=== PATIENT | male | born 1940 | race Two or more races ===

== ENCOUNTER 2017-07-27 20:36 | Inpatient (IN) | payer MEDICARE, OTHER ==
[~2017-07-27] VITALS: Ht 170.2 cm; Wt 82.1 kg
--- NOTE | 2017-07-27 20:49 | NUR ---
PT BRIB LAFD FROM HOME WITH FOR C/O PRESSURE TO BILATERAL EARS AND NECK, A/O X 4, BREATHING EVEN/UNLABORED, NO DIZZINESS, NO C/O PAIN, 18 G IV TO R AC,
[2017-07-27] MEDS ORDERED: IV NS 0.9% 500 ML BAG IV ONE (21:00)
[2017-07-27] MEDS ORDERED: DILTIAZEM HCL 50 MG IV ONE (21:07)
[2017-07-27 21:10] LABS: BASOPHILS # (AUTO) 0.1 /CMM (0.0-0.2); EOSINOPHILS # (AUTO) 0.1 /CMM (0.0-0.7); EOSINOPHILS % (AUTO) 1.4 % (0.0-6.0); HEMATOCRIT 40 % (39-51); HEMOGLOBIN 13.2 g/dL (13.5-17.5); LYMPHOCYTES % (AUTO) 23.8 % (20.0-44.0); MEAN CORPUSCULAR HEMOGLOBIN 26 PG (26.0-33.0); MEAN CORPUSCULAR HGB CONC 33 g/dl (31.0-36.0); MEAN CORPUSCULAR VOLUME 78 fL (80-96); MONOCYTES # (AUTO) 0.7 /CMM (0.1-1.30); MONOCYTES % (AUTO) 8.3 % (2.0-12.0); NEUTROPHILS # (AUTO) 5.5 /CMM (1.8-8.9); NEUTROPHILS % (AUTO) 65.5 % (43.0-81.0); PLATELET COUNT (AUTO) 161 /CMM (150-450); RDW COEFFICIENT OF VARIATION 15.3 (11.5-15.0); RED BLOOD CELL COUNT(AUTO) 5.11 MIL/uL (4.5-6.0); WHITE BLOOD COUNT (AUTO) 8.4 K/uL (4.3-11.0)
[2017-07-27 21:23] LABS: INR 0.94 (0.87-1.13); PROTHROMBIN TIME 9.8 SECS (9.5-12.7)
[2017-07-27 21:27] LABS: ALANINE AMINOTRANSFERASE 35 U/L (12-78); ALBUMIN 3.4 g/dL (3.4-5.0); ALKALINE PHOSPHATASE 109 U/L (46-116); ASPARTATE AMINOTRANSFERASE 19 U/L (15-37); BILIRUBIN,DIRECT 0.1 mg/dL (0.0-0.2); BILIRUBIN,TOTAL 0.2 mg/dL (0.2-1.0); CALCIUM, SERUM 8.6 mg/dL (8.5-10.1); CARBON DIOXIDE 25 mmol/L (21-32); CHLORIDE 109 mmol/L (98-107); CREATININE 1.4 mg/dL (0.6-1.3); GLUCOSE 222 mg/dL (74-106); POTASSIUM 4.8 mmol/L (3.5-5.1); SODIUM SERUM 143 mmol/L (136-145); TOTAL PROTEIN, SERUM 7.5 g/dL (6.4-8.2); UREA NITROGEN, BLOOD 26 mg/dL (7-18)
[2017-07-27 21:29] LABS: TROPONIN I < 0.017 ng/mL (0.00-0.056)
[2017-07-27] MEDS ORDERED: DILTIAZEM HCL 50 MG IV IV ONE (21:30)
--- NOTE | 2017-07-27 21:34 | NUR ---
CALLED [employer], SUGARCANE PLANTER WAS PAGED.
--- NOTE | 2017-07-27 21:42 | NUR ---
REPROT TO JADEN ZEE, ALL QUESTIONS ANSWERED
[2017-07-27] MEDS ORDERED: DILTIAZEM HCL 30 MG TABLET ONE (21:47)
[2017-07-27] MEDS ORDERED: DILTIAZEM HCL 30 MG TABLET PO SCH (22:00)
[2017-07-27 22:16] VITALS: BP 117/74
--- NOTE | 2017-07-27 22:37 | NUR ---
RN OPEN NOTES RECEIVED PATIENT FROM ER VIA [facility] WITH FAMILY AT BESIDE. A/O X3. NO SIGNS OF DISTRESS OR DISCOMFORT. BREATHING EVEN AND UNLABORED. IV ACCESS IN RAC PATENT AND INTACT, NO SIGNS OF REDNESS OR INFILTRATION. ATTACHED TO TELE MONITORING WITH AFIB 120 NOTED. ORIENTED PATIENT TO UNIT AND ROOM. BED IN LOW LOCKED POSITION WITH SIDE RAILS X2. CALL LIGHT WITHIN REACH. WILL CONTINUE TO MONITOR.
[2017-07-27 22:59] VITALS: BP 117/74
[2017-07-27] MEDS ORDERED: Z GUARD REMEDY 2 OZ OINT TP PRN (23:30)
[2017-07-27] MEDS ORDERED: ONDANSETRON HCL/PF 4 MG/2 ML VIAL IVP PRN (23:30)
[2017-07-27] MEDS ORDERED: ZOLPIDEM TARTRATE 5 MG TABLET PO PRN (23:30)
[2017-07-27] MEDS ORDERED: HYDROCODONE/APAP 5/325MG 1 EACH TABLET PO PRN (23:30)
[2017-07-27] MEDS ORDERED: ACETAMINOPHEN 325 MG TABLET PO PRN (23:30)
[2017-07-27] MEDS ORDERED: MAGNESIUM HYDROXIDE 30 ML UDC PO PRN (23:30)
[2017-07-28] MEDS ORDERED: LORAZEPAM INJ 2 MG/ML VIAL IV PRN (00:30)
[2017-07-28] MEDS ORDERED: DEXTROSE 50%-WATER 50 ML DISP.SYRIN IV PRN (00:30)
[2017-07-28] MEDS ORDERED: LORAZEPAM INJ 2 MG/ML VIAL ONE (00:37)
[2017-07-28] MEDS ORDERED: ZOLPIDEM TARTRATE 5 MG TABLET ONE (00:38)
--- NOTE | 2017-07-28 00:46 | NUR ---
RN NOTES PATIENT TAKEN DOWN FOR CT SCAN VIA GURNEY.
--- NOTE | 2017-07-28 00:59 | NUR ---
RN NOTES PATIENT BACK ON FLOOR FROM CT SCAN. WILL CONTINUE TO MONITOR.
[2017-07-28] MEDS ORDERED: IBUPROFEN 200 MG TABLET PO PRN (01:30)
[2017-07-28 04:00] VITALS: BP 107/65
[2017-07-28] MEDS: BLOOD SUGAR DIAGNOSTIC 1 EACH STRIP VI SCH ×4 (06:37→21:25)
[2017-07-28] MEDS: INSULIN REGULAR, HUMAN 100 UNIT/ML 3 ML VIAL SQ PRN ×3 (06:40→11:55)
--- NOTE | 2017-07-28 06:50 | NUR ---
RN NOTES RECEIVED PATIENT FROM 3W, PATIENT TOLERATED TRANSFER WELL. UNCONTROLLED AFIB ON FIELD RETURN REPAIRER. WILL START AMIODARONE BOLUS, THEN AMIODARONE DRIP PRESCRIBED BY MD. CALLED PHARMACY AT THIS TIME, NO CALL BACK. CHARGE NURSE RAQUEL MADE AWARE TO MIX AMIODARONE DRIP. WILL ADMINISTER WHEN MEDICATION AVAILABLE
[2017-07-28] MEDS ORDERED: AMIODARONE 150 MG/3 ML VIAL IV ONE (06:59)
[2017-07-28] MEDS ORDERED: AMIODARONE 900 MG in IV D5W 500 ML IV PRN (07:00)
[2017-07-28] MEDS ORDERED: AMIODARONE 150 MG in IV D5W 100 ML IV ONE (07:00)
--- NOTE | 2017-07-28 07:04 | NUR ---
RN CLOSING NOTES TRANSFERRED PATIENT TO XI VIA ACLS PROTOCOL IN STABLE CONDITION. PATIENT AT BESIDE. NO SIGNS OF DISTRESS OR DISCOMFORT. BREATHING EVEN AND UNLABORED. IV ACCESS IN RAC, PATENT AND INTACT, NO SIGNS OF REDNESS OR INFILTRATION. NO SIGNIFICANT CHANGES THROUGH THE NIGHT. ALL NEEDS MET. ENDORSED TO ANTON FOR JONATHAN.
[2017-07-28 07:16] LABS: EOSINOPHILS # (AUTO) 0.1 /CMM (0.0-0.7); EOSINOPHILS % (AUTO) 1.1 % (0.0-6.0); HEMATOCRIT 35 % (39-51); HEMOGLOBIN 11.9 g/dL (13.5-17.5); LYMPHOCYTES # (AUTO) 1.9 /CMM (0.8-4.8); LYMPHOCYTES % (AUTO) 21.1 % (20.0-44.0); MEAN CORPUSCULAR HEMOGLOBIN 26 PG (26.0-33.0); MEAN CORPUSCULAR HGB CONC 34 g/dl (31.0-36.0); MEAN CORPUSCULAR VOLUME 78 fL (80-96); MONOCYTES # (AUTO) 0.6 /CMM (0.1-1.30); MONOCYTES % (AUTO) 6.7 % (2.0-12.0); NEUTROPHILS # (AUTO) 6.4 /CMM (1.8-8.9); NEUTROPHILS % (AUTO) 71.1 % (43.0-81.0); PLATELET COUNT (AUTO) 145 /CMM (150-450); RDW COEFFICIENT OF VARIATION 16.7 (11.5-15.0); RED BLOOD CELL COUNT(AUTO) 4.51 MIL/uL (4.5-6.0)
[2017-07-28 07:40] LABS: CARBON DIOXIDE 20 mmol/L (21-32); CHLORIDE 110 mmol/L (98-107); CREATININE 1.4 mg/dL (0.6-1.3); GLUCOSE 240 mg/dL (74-106); MAGNESIUM 1.7 mg/dL (1.8-2.4); PHOSPHORUS 2.9 mg/dL (2.5-4.9); POTASSIUM 4.1 mmol/L (3.5-5.1); SODIUM SERUM 141 mmol/L (136-145); UREA NITROGEN, BLOOD 25 mg/dL (7-18)
--- NOTE | 2017-07-28 07:40 | NUR ---
XI RN NOTE CALLED TO DR FERNANDEZ NOTIFIED THAT HR ON TELE MONITOR SR HR 60 ,DID NOT START AMIODARONE DRIP , STATED OK TO STOP DRIP AND START AMIODARONE 200 MG PO TID HOLD HR LESS THEN 50, ORDER CARRIED OUT
[2017-07-28 08:00] VITALS: BP 108/53
--- NOTE | 2017-07-28 08:00 | NUR ---
XI RNNOTE RECEIVED PATIENT IN BED , ALERT , ORIENTED NO SOB NOTED, AT BEDSIDE,PER DR FERNANDEZ ORDER WILL STOP AMIODARONE DRIP WILL START AMIODARONE 200 MG TID PO , RECHECKED BLOOD SUGAR 320 MG\DL , 6 UNITS OF REGULAR INSULIN GIVEN ON TELE MONITOR SR HR 60 , RT AC HL INTACT NI S\S INFECTION NOTED, BED IN LOWEST AND LOCKED POSITION , CALL LIGHT WITHIN REACH ,PLAN OF CARE DISCUSSED WITH PATIENT ,WILL CONT TO MONITOR CLOSELY
[2017-07-28 08:16] LABS: THYROID STIMULATING HORMONE 1.357 uIU/mL (0.358-3.74); TRIGLYCERIDES 129 mg/dL (30-150)
[2017-07-28 08:17] LABS: CHOLESTEROL 58 mg/dL (<200); HDL CHOLESTEROL 30 mg/dL (40-60); LDL 17 mg/dL (0-99)
[2017-07-28] MEDS: CLOPIDOGREL BISULFATE 75 MG TABLET PO SCH (08:21)
[2017-07-28] MEDS: ATORVASTATIN 40 MG TABLET PO SCH (08:21)
[2017-07-28] MEDS: AMIODARONE HCL 200 MG TABLET PO SCH ×3 (08:23→16:24)
[2017-07-28] MEDS ORDERED: ZOLP10TA2 PO (08:42)
[2017-07-28] MEDS ORDERED: ALFU10TA10 PO (08:42)
[2017-07-28] MEDS ORDERED: LATA2.5D7 EACHEYE (08:42)
[2017-07-28] MEDS ORDERED: LORA0.5T PO (08:42)
[2017-07-28] MEDS ORDERED: GLIM4TAB2 PO (08:42)
[2017-07-28] MEDS ORDERED: DEXL60CA3 PO (08:42)
[2017-07-28] MEDS ORDERED: CARV25TA2 PO (08:42)
[2017-07-28] MEDS ORDERED: ROSU10TA PO (08:42)
[2017-07-28] MEDS ORDERED: COLC0.6T69 PO (08:42)
[2017-07-28] MEDS ORDERED: CLOP75TA2 PO (08:42)
[2017-07-28] MEDS ORDERED: TADA5TAB2 PO (08:42)
[2017-07-28] MEDS ORDERED: INSU3INS6 SQ (08:42)
[2017-07-28] MEDS ORDERED: DULA0.75 SQ (08:42)
[2017-07-28] MEDS ORDERED: LISI-603 PO (08:42)
[2017-07-28] MEDS ORDERED: HUM10VIA5 SQ (08:43)
[2017-07-28] MEDS: LOSARTAN POTASSIUM 50 MG TABLET PO SCH (09:37)
--- NOTE | 2017-07-28 09:49 | NUR ---
SALES DEVELOPMENT COORDINATOR NOTE ON TELE MONITOR SR 68, NOT IN ACUTE DISTRESS. WILL CONT TO MONITOR CLOSELY
[2017-07-28 10:08] VITALS: BP 122/55
--- NOTE | 2017-07-28 11:00 | NUR ---
ASSEMBLER [employer] PIPES NOTE REPORT GIVEN TO PATITO ZEE
--- NOTE | 2017-07-28 11:00 | NUR ---
RN NOTES RECEIVED PT FROM [facility]. PT A&0X3, YARELI SPEAKING ON ROOM AIR NO SOB OR DISTRESS NOTED, AT BEDSIDE. SR ON THE TELE MONITOR. RAC 18G IV SITE DRY AND INTACT. BED LOCKED AND IN LOWEST POSITION, CALL LIGHT WITHIN REACH, SIDE RAILS UPX3 WILL CONT TO MONITOR.
[2017-07-28] MEDS: Magnesium 1GM/D5W 100ML PREMIX 100 ML IV SCH ×2 (11:36→12:46)
[2017-07-28 12:00] VITALS: BP 120/55
[2017-07-28] MEDS: *INSULIN REGULAR(HUMULIN R)HUM 100 UNIT/ML VIAL SQ PRN ×2 (16:37→21:31)
[2017-07-28] MEDS ORDERED: RIVAROXABAN 10 MG TABLET PO SCH (17:00)
[2017-07-28 18:00] VITALS: BP 120/53
[2017-07-28] MEDS ORDERED: LORAZEPAM 0.5 MG TABLET PO PRN (18:00)
[2017-07-28] MEDS ORDERED: LATANOPROST EYE DROP 0.005% 2.5 ML BOTTLE EACHEYE SCH (18:00)
[2017-07-28] MEDS: INSULIN DETEMIR 100 UNIT/ML CARTRIDGE SQ SCH ×2 (18:20→21:23)
--- NOTE | 2017-07-28 18:48 | NUR ---
RN NOTES PT RESTING IN BED WITH AT BEDSIDE. NO SOB OR DISTRESS NOTED NO SIGNIFICANT CHANGES THROUGHOUT THE SHIFT, PT REMAINED IN STABLE CONDITION, ALL NEEDS MET. BED LOCKED AND IN LOWEST POSITION, SIDE RAILS UPX3, CALL LIGHT WITHIN REACH, WILL ENDORSE TO ONCOMING SHIFT.
--- NOTE | 2017-07-28 19:30 | NUR ---
UROLOGY PHYSICIAN ASSISTANT NOTES: RECEIVED PATIENT WALKING IN THE ROOM W/ AT BEDSIDE. ALERT AND ORIENTED X 4. MOSTLY JAPANESE SPEAKING BUT IS ABLE TO SPEAK LITTLE SAUDI ARABIAN. ON TELE MONITOR SINUS LATIA AT 56. PT. REQUESTED ATIVAN 0.5 MGS PRN FOR ANXIETY FOR SLEEP. ALL NEEDS MEET AND ATTENDED. CALL LIGHT W/ REACH. WILL CONTINUE TO MONITOR.
[2017-07-28 20:00] VITALS: BP 107/53
[2017-07-28] MEDS: CARVEDILOL 12.5 MG TABLET PO SCH (21:16)
[2017-07-29] VITALS: BP 136/48
[2017-07-29 04:00] VITALS: BP 140/50
--- NOTE | 2017-07-29 07:00 | NUR ---
DAY CARE CENTER DIRECTOR NOTES: PT. IN BED AWAKE AND ALERT X 3. ASKING TO BE SEEN BY HIS MD. AND NEED CLARIFICATION OF WHY HE NEED TO BE ON TELE AND WANTED HIS HL OUT. EXPLAINED BUT STILL INSISTED THAT HE WANTS TO TALK TO A DOCTOR AND HEAR IT FROM HIM. REPORT GIVEN TO NEXT INCOMING SHIFT TO CARRY OUT PLAN OF CARE. CALL LIGHT W/ REACH.
[2017-07-29 07:02] LABS: BASOPHILS % (AUTO) 0.2 % (0.0-2.0); EOSINOPHILS # (AUTO) 0.1 /CMM (0.0-0.7); HEMATOCRIT 34 % (39-51); HEMOGLOBIN 11.4 g/dL (13.5-17.5); LYMPHOCYTES # (AUTO) 1.7 /CMM (0.8-4.8); LYMPHOCYTES % (AUTO) 15.5 % (20.0-44.0); MEAN CORPUSCULAR HEMOGLOBIN 26 PG (26.0-33.0); MEAN CORPUSCULAR HGB CONC 34 g/dl (31.0-36.0); MEAN CORPUSCULAR VOLUME 78 fL (80-96); MONOCYTES # (AUTO) 0.7 /CMM (0.1-1.30); MONOCYTES % (AUTO) 6.4 % (2.0-12.0); NEUTROPHILS # (AUTO) 8.7 /CMM (1.8-8.9); NEUTROPHILS % (AUTO) 76.9 % (43.0-81.0); PLATELET COUNT (AUTO) 135 /CMM (150-450); RDW COEFFICIENT OF VARIATION 16.2 (11.5-15.0); RED BLOOD CELL COUNT(AUTO) 4.36 MIL/uL (4.5-6.0); WHITE BLOOD COUNT (AUTO) 11.3 K/uL (4.3-11.0)
[2017-07-29 07:17] LABS: ALANINE AMINOTRANSFERASE 31 U/L (12-78); ALKALINE PHOSPHATASE 83 U/L (46-116); ASPARTATE AMINOTRANSFERASE 18 U/L (15-37); BILIRUBIN,TOTAL 0.3 mg/dL (0.2-1.0); CALCIUM, SERUM 8.4 mg/dL (8.5-10.1); CARBON DIOXIDE 22 mmol/L (21-32); CHLORIDE 107 mmol/L (98-107); CREATININE 1.4 mg/dL (0.6-1.3); GLUCOSE 116 mg/dL (74-106); MAGNESIUM 1.8 mg/dL (1.8-2.4); PHOSPHORUS 2.6 mg/dL (2.5-4.9); SODIUM SERUM 138 mmol/L (136-145); TOTAL PROTEIN, SERUM 6.6 g/dL (6.4-8.2); UREA NITROGEN, BLOOD 23 mg/dL (7-18)
[2017-07-29] MEDS ORDERED: PANTOPRAZOLE 40 MG TABLET.DR PO SCH (07:30)
[2017-07-29 07:52] LABS: TROPONIN I 1.004 ng/mL (0.00-0.056)
[2017-07-29 08:00] VITALS: BP 164/72
[2017-07-29] MEDS: BLOOD SUGAR DIAGNOSTIC 1 EACH STRIP VI SCH (08:46)
[2017-07-29] MEDS: CARVEDILOL 12.5 MG TABLET PO SCH (08:51)
[2017-07-29] MEDS: AMIODARONE HCL 200 MG TABLET PO SCH (08:52)
[2017-07-29] MEDS: ATORVASTATIN 40 MG TABLET PO SCH (08:53)
[2017-07-29] MEDS: CLOPIDOGREL BISULFATE 75 MG TABLET PO SCH (08:53)
[2017-07-29] MEDS ORDERED: TADALAFIL 5 MG PO SCH (09:00)
[2017-07-29] MEDS ORDERED: CLOPIDOGREL BISULFATE 75 MG TABLET PO SCH (09:00)
[2017-07-29] MEDS ORDERED: INSULIN DETEMIR 100 UNIT/ML CARTRIDGE SQ SCH (09:00)
[2017-07-29] MEDS ORDERED: GLIMEPIRIDE 4 MG TABLET PO SCH (09:00)
[2017-07-29] MEDS ORDERED: LISINOPRIL (20MG) 20 MG TABLET PO SCH (09:00)
[2017-07-29] MEDS ORDERED: Alfuzosin Hcl 10 MG PO SCH (09:00)
[2017-07-29 09:08] VITALS: BP 164/72
[2017-07-29] MEDS: LOSARTAN POTASSIUM 50 MG TABLET PO SCH (09:08)
--- NOTE | 2017-07-29 11:00 | NUR ---
RN NOTE PT IS UPSET AND AGITATED, FAMILY UPSET THAT PT AND FAMILY HAS NOT TALKED TO DR SINCE ADMISSION. PT SEEN BY DR FERNANDEZ EARLIER IN THE AM, PT WANTS TO LEAVE HOSPITAL AMA, REFUSES TESTS/TREATMENT, RISKS AND BENEFITS EXPLAINED, STILL WANTS TO GO HOME, PT'S GRANDDAUGHTER CAME TO MEDICAL RECORDS MANAGER THE PT, AMA PAPER SIGNED, DISCHARGE INSTRUCTIONS AND PAPERS SIGNED AND PROVIDED PT WITH COPIES AND CD WITH IMAGES GIVEN TO GRANDDAUGHTER. PT LEFT AMA WITH GRANDDAUGHTER VIA OWN TRANSPORTATION.
[2017-07-29] MEDS ORDERED: SOD FERRIC GLUC 125 MG in IV NS 0.9% 100 ML IV SCH (14:00)
== END 2017-07-29 11:19 | disposition left against medical advice (07) | DRG 280 ==
LOC: ER 20:38 → EDSEX 20:38 → TELE 21:17 → TELE-TD 07-28 06:50 → TELE1 07-28 08:25 → MEDSG1 07-29 08:32
PROVIDERS: ADMIT Nurse Practitioner Acute Care; ATTEND Nurse Practitioner Acute Care
DX: I48.91 Unspecified atrial fibrillation (principal); N17.0 Acute kidney failure with tubular necrosis; I21.A1 Myocardial infarction type 2; I11.0 Hypertensive heart disease with heart failure; I50.9 Heart failure, unspecified; D64.9 Anemia, unspecified; E11.9 Type 2 diabetes mellitus without complications; F41.9 Anxiety disorder, unspecified; I73.9 Peripheral vascular disease, unspecified; N40.0 Benign prostatic hyperplasia without lower urinary tract symptoms; Z79.4 Long term (current) use of insulin; Z86.718 Personal history of other venous thrombosis and embolism; Z87.891 Personal history of nicotine dependence; M54.12 Radiculopathy, cervical region; R51 Headache; I25.10 Atherosclerotic heart disease of native coronary artery without angina pectoris
CPT/HCPCS: 36415; 70450-TC; 70490-TC; 71010-TC; 80048-TC; 80053-TC; 80061-TC; 80076-TC; 82306; 82728-TC; 82962-TC; 83540-TC; 83605-TC; 83735-TC; 83880; 84100-TC; 84439-TC; 84443-TC; 84484-TC; 85025-TC; 85730-TC; 87040-TC; 87081-TC; 93307-TC; A4606; J0282; J1815; J2060; J2916; J3475; J3490; J7030; J7040; J7060; Z7610